=== PATIENT | female | born 1985 | race Caucasian/White ===

== ENCOUNTER 2021-02-03 05:45 | Emergency (ER) | payer SELFPAY ==
[~2021-02-03] VITALS: Ht 167.6 cm; Wt 78.0 kg
[2021-02-03] MEDS ORDERED: TETANUS, DIPHTHERIA, PERTUSSIS VAC/PF 0.5ML (>7YR OLD) IM ONE (08:30)
[2021-02-03] MEDS ORDERED: LIDOCAINE HCL/EPINEPHRINE 1%-EPI 1:100,000 20 ML VIAL INFIL SCH (08:30)
[2021-02-03] MEDS ORDERED: AMOXICILLIN/POTASSIUM CLAVULANATE 875/125MG TAB PO ONE (08:30)
[2021-02-03] MEDS ORDERED: LIDOCAINE HCL/EPINEPHRINE 1%-EPI 1:100,000 50 ML VIAL INFIL ONE (08:30)
[2021-02-03] MEDS ORDERED: AMOX-424 MT (09:10)
[2021-02-03 09:20] VITALS: BP 136/86
== END 2021-02-03 09:25 | disposition home or self-care (01) ==
LOC: ER 05:45
DX: S91.312A Laceration without foreign body, left foot, initial encounter (principal); W54.0XXA Bitten by dog, initial encounter; Y93.89 Activity, other specified; Y92.89 Other specified places as the place of occurrence of the external cause; Y99.8 Other external cause status
CPT/HCPCS: 12002; 81025; 90471; 90715; 99283; A4217; J3490; Z7610